=== PATIENT | female | born 1980 | race Asian ===

== ENCOUNTER 2018-06-16 20:41 | Inpatient (IN) | payer OTHER ==
[~2018-06-16] VITALS: Ht 162.6 cm; Wt 68.3 kg
[2018-06-16 20:45] VITALS: Ht 162.6 cm; Wt 68.3 kg
[2018-06-16 21:38] LABS: PLATELET COUNT 459 x10^3mcL (130-400); RED CELL DISTRIBUTION WIDTH 20.2 % (11.5-14.5)
[2018-06-16 21:39] LABS: CALCIUM 8.5 mg/dL (8.5-10.1); CARBON DIOXIDE 25.7 mmol/L (21-32); CHLORIDE SERUM 104 mmol/L (98-107); CREATININE SERUM 0.7 mg/dL (0.6-1.0); GFR1 > 60 mL/min; GLUCOSE SERUM 127 mg/dL (74-106); POTASSIUM SERUM 3.4 mmol/L (3.5-5.1); SODIUM SERUM 139 mmol/L (136-145)
[2018-06-16 21:43] LABS: ALBUMIN 3.7 g/dL (3.4-5.0); ALKALINE PHOSPHATASE 60 U/L (46-116); ALT/SGPT 24 U/L (14-59); AST/SGOT 11 U/L (15-37); BILIRUBIN TOTAL 0.3 mg/dL (0.20-1.00); LIPASE 121 IU/L (73-393); TOTAL PROTEIN, SERUM 7.5 g/dL (6.4-8.2)
[2018-06-16 21:51] LABS: BAND NEUTROPHIL 7 % (0-10); MONOCYTE 4 % (0-7); SEGMENTED NEUTROPHILS 73 % (37-75)
[2018-06-16 21:52] LABS: BASOPHIL 0 % (0-2); rbc morphology (normal/abnorm) ABNORMAL (NORMAL)
[2018-06-16 21:53] LABS: ovalocyte/elliptocyte 1+
[2018-06-16 21:54] LABS: PLATELET MORPHOLOGY PLATELETS NORMAL
[2018-06-17] VITALS (7 sets, daily range): BP systolic 90–128; BP diastolic 47–79
[2018-06-17 00:55] LABS: MAGNESIUM 1.9 mg/dL (1.8-2.4); PHOSPHOROUS 3.5 mg/dL (2.5-4.9)
[2018-06-17 07:23] LABS: CALCIUM 8.1 mg/dL (8.5-10.1); CARBON DIOXIDE 26.2 mmol/L (21-32); CHLORIDE SERUM 108 mmol/L (98-107); CREATININE SERUM 0.7 mg/dL (0.6-1.0); GFR1 > 60 mL/min; GLUCOSE SERUM 102 mg/dL (74-106); POTASSIUM SERUM 4.3 mmol/L (3.5-5.1); SODIUM SERUM 142 mmol/L (136-145)
[2018-06-17 07:47] LABS: UA SPECIFIC GRAVITY >=1.030 (1.005-1.035); microscopic required? YES; urine erythrocyte 3+ (NEGATIVE)
[2018-06-17 09:34] LABS: PLATELET COUNT 382 x10^3mcL (130-400)
[2018-06-17 09:39] LABS: RED CELL DISTRIBUTION WIDTH 20.3 % (11.5-14.5)
[2018-06-17 09:42] LABS: TOTAL IRON BINDING CAPACITY 359 ug/dL (250-450)
[2018-06-17 09:46] LABS: IRON 16 ug/dL (50-170)
[2018-06-17 13:59] LABS: BAND NEUTROPHIL 6 % (0-10); MONOCYTE 5 % (0-7); SEGMENTED NEUTROPHILS 71 % (37-75)
[2018-06-17 14:00] LABS: rbc morphology (normal/abnorm) ABNORMAL (NORMAL)
[2018-06-17 14:01] LABS: PLATELET MORPHOLOGY PLATELETS NORMAL; ovalocyte/elliptocyte 1+; tear drop cell (dacryocyte) 1+
[2018-06-18 05:36] VITALS: BP 110/64
[2018-06-18 06:26] LABS: CALCIUM 8.4 mg/dL (8.5-10.1); CARBON DIOXIDE 28.3 mmol/L (21-32); CHLORIDE SERUM 109 mmol/L (98-107); CREATININE SERUM 0.6 mg/dL (0.6-1.0); GFR1 > 60 mL/min; GLUCOSE SERUM 107 mg/dL (74-106); POTASSIUM SERUM 3.6 mmol/L (3.5-5.1); SODIUM SERUM 144 mmol/L (136-145)
[2018-06-18 07:16] VITALS: BP 110/70
[2018-06-18 08:12] LABS: PHOSPHOROUS 3.4 mg/dL (2.5-4.9)
[2018-06-18 08:38] LABS: PLATELET COUNT 404 x10^3mcL (130-400); RED CELL DISTRIBUTION WIDTH 18.5 % (11.5-14.5)
[2018-06-18 14:42] LABS: BAND NEUTROPHIL 5 % (0-10); MONOCYTE 7 % (0-7); SEGMENTED NEUTROPHILS 72 % (37-75)
[2018-06-18 14:43] LABS: rbc morphology (normal/abnorm) ABNORMAL (NORMAL)
[2018-06-18 14:44] LABS: PLATELET MORPHOLOGY PLATELETS NORMAL; ovalocyte/elliptocyte 1+; schistocyte (helmet cell) 1+; tear drop cell (dacryocyte) 1+
[2018-06-18 17:04] VITALS: BP 119/75
[2018-06-18 20:38] VITALS: BP 125/79
[2018-06-19 05:48] VITALS: BP 127/80
[2018-06-19 06:29] LABS: CALCIUM 7.8 mg/dL (8.5-10.1); CARBON DIOXIDE 26.5 mmol/L (21-32); CHLORIDE SERUM 109 mmol/L (98-107); CREATININE SERUM 0.6 mg/dL (0.6-1.0); GFR1 > 60 mL/min; GLUCOSE SERUM 104 mg/dL (74-106); POTASSIUM SERUM 3.4 mmol/L (3.5-5.1); SODIUM SERUM 144 mmol/L (136-145)
[2018-06-19 07:33] LABS: BASOPHIL % 0.4 % (0-2); PLATELET COUNT 398 x10^3mcL (130-400)
[2018-06-19 09:38] VITALS: BP 135/80
[2018-06-19] MEDS ORDERED: FERROUS SULFAT325 M2 PO (09:44)
[2018-06-19] MEDS ORDERED: FLA500 PO (09:44)
[2018-06-19] MEDS ORDERED: COLACE100 MG PO (09:44)
[2018-06-19 11:30] LABS: ovalocyte/elliptocyte 1+; rbc morphology (normal/abnorm) ABNORMAL (NORMAL); tear drop cell (dacryocyte) 1+
[2018-06-19 13:26] VITALS: BP 135/80
== END 2018-06-19 17:53 | disposition home or self-care (01) | DRG 234 ==
LOC: ED 20:41 → MU 23:27
PROVIDERS: Emergency Medicine; Surgery; ADMIT Internal Medicine
PROC: 0DTJ4ZZ Resection of Appendix, Percutaneous Endoscopic Approach (ICD-10-PCS; principal; 2018-06-17 10:00)
PROC: 30233N1 Transfusion of Nonautologous Red Blood Cells into Peripheral Vein, Percutaneous Approach (ICD-10-PCS; 2018-06-18)
DX: K35.80 Unspecified acute appendicitis (principal); D50.9 Iron deficiency anemia, unspecified; E87.6 Hypokalemia; Z68.26 Body mass index [BMI] 26.0-26.9, adult
CPT/HCPCS: 94150; J0330; J1170; J1885; J1956; J2270; J2405; J2543; J2704; J2710; J3010; J3490; J7030; J7050; J7060; J7120; P9016; Q0163